=== PATIENT | female | born 1950 | race Caucasian/White ===

== ENCOUNTER 2020-02-22 10:18 | Outpatient (CLI) | payer MEDICARE, SELFPAY ==
--- NOTE | ~2020-02-22 | DEXA_ITS ---
Bone Density Report Name: Brooke Jose Age: 69 Sex: Female Ethnicity: White Date of : 1950 Indication: postmenopausal; screening for osteoporosis; height loss; Referring Provider: Yeni, Jignesh Study: Bone densitometry was performed. Exam Date: February 22, 2020 Accession number: [id number] Bone Density: Region BMD T-score Z-score Classification AP Spine(L1-L4) 1.164 1.1 3.1 Normal World Health Organization criteria for BMD impression classify patients as: Normal (T-score at or above -1.0), Osteopenia (T-score between -1.0 and -2.5), or Osteoporosis (T-score at or below -2.5). Clinical Information Provided by Patient: Is being treated for osteoporosis Has used the following medications: Actonel (i.e. risedronate), Vitamin D, Calcium Patient maximum height was 64 Menopause Age: 50 Drinks caffeinated beverages Onset of menses at age 13 Number of children 2 Impression: The patient has normal bone mass. Discussion: It is important to ask patients whether they are taking their medications and to encourage continued and appropriate compliance with their osteoporosis therapies to reduce fracture risk. It is also important to review their risk factors and encourage appropriate calcium and vitamin D intakes, exercise, fall prevention and other lifestyle measures. Follow-Up: Consider a repeat BMD and Vertebral Fracture Assessment (VFA) exam in 2 years or sooner if medically necessary, to reassess this patient's status. Reported by: Dr. Antony Solano on 02/22/2020 11:04:00 AM. Reviewed, dictated and finalized at location [facility]
== END 2020-02-22 10:19 | disposition home or self-care (01) ==
LOC: CHSIMG 10:20
PROVIDERS: PCP Family Medicine; Visit Provider Family Medicine
DX: Z78.0 Asymptomatic menopausal state (principal)
CPT/HCPCS: 77080

== ENCOUNTER 2022-03-26 09:55 | Outpatient (CLI) | payer MEDICARE, SELFPAY ==
--- NOTE | ~2022-03-26 | DEXA_ITS ---
Bone Density Report Name: HIRAM AYALA Age: 71 Sex: Female Ethnicity: White Date of : 1950 Indication: postmenopausal; screening for osteoporosis; height loss; prior fracture; Referring Provider: Yeni, Jignesh Study: Bone densitometry was performed. Exam Date: March 26, 2022 Accession number: [id number] Bone Density: Region BMD T-score Z-score Classification AP Spine(L2, L3, L4) 1.188 1.0 3.3 Normal World Health Organization criteria for BMD impression classify patients as: Normal (T-score at or above -1.0), Osteopenia (T-score between -1.0 and -2.5), or Osteoporosis (T-score at or below -2.5). Clinical Information Provided by Patient: Have had a previous hip or vertebral fracture Has had a low trauma fracture Is being treated for osteoporosis Has used the following medications: Vitamin D, Calcium Patient maximum height was 64 Menopause Age: 50 No regular weight bearing exercise Does not regularly consume dairy products Drinks caffeinated beverages Onset of menses at age 12 Number of children 2 Impression: The patient has normal bone mass. The patient has risk factors, including: previous fracture. Discussion: It is important to ask patients whether they are taking their medications and to encourage continued and appropriate compliance with their osteoporosis therapies to reduce fracture risk. It is also important to review their risk factors and encourage appropriate calcium and vitamin D intakes, exercise, fall prevention and other lifestyle measures. Follow-Up: Consider a repeat BMD and Vertebral Fracture Assessment (VFA) exam in 2 years or sooner if medically necessary, to reassess this patient's status. Reported by: Dr. Patrick Kwok on 03/26/2022 10:24:00 AM. Reviewed, dictated and finalized at location [facility]
== END 2022-03-26 09:56 | disposition home or self-care (01) ==
LOC: CHSIMG 09:58
PROVIDERS: PCP Family Medicine; Visit Provider Family Medicine
DX: Z78.0 Asymptomatic menopausal state (principal)
CPT/HCPCS: 77080

== ENCOUNTER 2024-05-07 11:31 | Outpatient (CLI) | payer MEDICARE, SELFPAY ==
--- NOTE | ~2024-05-07 | DEXA_ITS ---
Bone Density Report Name: HIRAM AYALA Age: 73 Sex: Female Ethnicity: White Date of : 1950 Indication: postmenopausal; screening for osteoporosis; height loss; prior fracture; Referring Provider: Yeni, Jignesh Study: Bone densitometry was performed. Exam Date: May 07, 2024 Accession number: [id number] Bone Density: Region BMD T-score Z-score Classification AP Spine(L2, L3, L4) 1.164 0.8 3.2 Normal World Health Organization criteria for BMD impression classify patients as: Normal (T-score at or above -1.0), Osteopenia (T-score between -1.0 and -2.5), or Osteoporosis (T-score at or below -2.5). Previous Exams: Region Exam Age BMD T-score BMD Change BMD Change Date g/cm2 vs Baseline vs Previous AP Spine (L2-L4) 05/07/2024 73 1.164 0.8 -0.024 (-2.0%) -0.024 (-2.0%) 03/26/2022 71 1.188 1.0 *Denotes significance at 95% confidence level, LSC for AP Spine = 0.022 g/cm2 # Denotes dissimilar scan types or analysis methods Clinical Information Provided by Patient: Has had a low trauma fracture Has used the following medications: Vitamin D, Calcium Patient maximum height was 64 Menopause Age: 50 Drinks caffeinated beverages Onset of menses at age 13 Number of children 2 Impression: The patient has normal bone mass. The patient has risk factors, including: previous fracture. No significant bone loss was observed. Discussion: LOW RISK OF FRACTURE; BONE DENSITY IS WELL ABOVE THE MINIMUM DESIRABLE LEVEL AND ABOVE AVERAGE FOR AGE AND SEX AT ALL SKELETAL SITES TESTED. This person's bone density is above expected limits for age and sex. This is rarely clinically significant, but should be pursued if there are significant musculoskeletal complaints. The patient should follow a healthful lifestyle (good nutrition with adequate calcium and vitamin D, and appropriate weight-bearing exercise). Follow-Up: Consider repeating this study in 5 years or sooner if there is some new clinical indication. Reported by: CHRISTOPHER on 05/07/2024 11:56:00 AM. Reviewed, dictated and finalized at location A.
--- OUTSIDE RECORDS SUMMARY | 2024-05-07 12:32 | XMS_ITS | Continuity of Care Document ---
Author Organization [facility] Address [address] [facility] [place] [address] Phone Care Team Providers Care Ore Puncher Name Role Phone Bran Worthington MD Unavailable Unavailable Allergies, Adverse Reactions, Alerts Substance Reaction Status Criticality penicillin G Active No Information Medications Medication Instructions Dosage Effective Dates (start - stop) Status Comments atenolol 100 mg tablet take 1 tablet (100MG) by oral route every day 100 MG - Active Celexa 20 mg tablet take 1 tablet (20MG) by oral route every day 20 MG - Active Lipitor 40 mg tablet take 1 tablet (40MG ) by oral route every day 40 MG - Active alendronate 35 mg tablet take 1 tablet (35MG) by oral route every week in the morning, at least 30 min before first food, beverage, or medication of day - Active Procedures Procedure Date OFFICE/OUTPATIENT VISIT, EST OFFICE/OUTPATIENT VISIT, EST OFFICE/OUTPATIENT VISIT, EST PREV VISIT, EST, AGE 40-64 OFFICE/OUTPATIENT VISIT, EST OFFICE/OUTPATIENT VISIT, EST PREV VISIT, EST, AGE 40-64 Advance Directives Directive Yes / No Effective Date File Name No Information Encounters Encounter Description Practice Location Reason(s) For Visit Diagnoses Date Provider Providers Copied on Encounter OFFICE/OUTPA TIENT VISIT, EST [facility], [address] [place] [id number], [place] tel:[phone] [facility] anemia (chief complaint) Dietary surveillance and counselingAnemiaS/ P hip joint replacementUnspeci fied essential hypertension [address], [place], [place], [address] , [place]. tel:[phone] Referring Provider: [address], [place], [place], [address]. tel:[phone] OFFICE/OUTPA TIENT VISIT, EST [facility], [address], [place], [place], [address], [place] tel:[phone] [facility] Osteopenia (chief complaint)H LP (chief complaint)d epression (chief complaint)H TN (chief complaint) Dietary surveillance and counselingDisorder of bone and cartilage, unspecifiedOther and unspecified hyperlipidemiaDepr essionHypertension , Unspecified [address], [place], [place], [address] , [place]. tel:[phone] Referring Provider: [address], [place], [place], [id number]. tel:[phone] OFFICE/OUTPA TIENT VISIT, EST [facility], [address] [place], [address], [place] tel:[phone] [facility] osteopenia (chief complaint) Dietary surveillance and counselingDisorder of bone and cartilage, unspecified [address], [place], [place], [address] , [place]. tel:[phone] Referring Provider: Chi [address], [place], [place], [address]. tel:[phone] PREV VISIT, EST, AGE 40-64 [facility], [address], [place], [place], [address], [place] tel:[phone] [facility] HTN (chief complaint)H LP (chief complaint)D epression (chief complaint)f amily history of CAD (chief complaint)b ack pain (chief complaint) Dietary surveillance and counselingOther and unspecified hyperlipidemiaDepr essionLumbagoRouti ne Medical ExamRoutine Medical Exam [address], [place], [place], [address] , [place]. [phone] Referring Provider: Chi [address], [place], [place], [id number]. tel:[phone] OFFICE/OUTPA TIENT VISIT, EST [facility], [address], [place], [place], [address], [place] tel:[phone] [facility] Medicine HLP (chief complaint)H TN (chief complaint)d epression (chief complaint)b ack pain (chief complaint) Dietary surveillance and counselingOther and unspecified hyperlipidemiaHype rtension, UnspecifiedLumbago Depression [address], [place], [place], [address] , [place]. [phone] Referring Provider: [address], [place], [place], [address]. tel:[phone] PREV VISIT, EST, AGE 40-64 [facility], [address], [place], [place], [address], [place] tel:[phone] [facility] Physical (chief complaint) Dietary surveillance and counselingRoutine Medical ExamRoutine Medical Exam 3 [address], [place], [place], [address] , [place]. [phone] Referring Provider: [address], [place], [place], [address]. tel:[phone] [facility], [address], [place], [place], [address], [place] tel:[phone] [facility] Routine Medical Exam [address], [place], [place], [address] , [place]. [phone] Family History Family Member Type Diagnosis Age At Onset Mother Problem (finding) Coronary artery disease Mother Problem (finding) Cancer Mother Problem (finding) Hypertension Brother Problem (finding) Diabetes mellitus Father Problem (finding) Coronary artery disease Payers Payer name Insurance type Covered green party ID Authoryenya tidemetrio(s) No Information Social History Type Description Quantity Date Captured Comments Alcohol Use Details No Caffeine Use Details Unknown Tobacco Use Status Ex-cigarette smoker 015 Smoking Status Former smoker Smoking Tobacco Use Details Cigarette: No Details Available Cigarette: No Details Available Sex Female Vital Signs Date / Time: Height Weight BMI Pulse Rate Blood Pressure Temperature Respiratory Rate Body Surface Area Head Circumference BMI percentile Pulse Ox Inhaled Ox 4:40 PM 162.56 cm 196.00 lbs 33.6 4 kg/m eter (2) 80 /min 139/83 mm[Hg] 98.7 F 16 /min Chief Complaint And Reason For Visit From encounter dated '09/06/2014 15:00'. anemia (chief complaint). Description: Additional information: Pt has some anmiea since the hip replacement surgery. Pt denies any blood loss. Plan Of Treatment Date Type Action Status Goal Special diet education compl eted Goal Tobacco cessation counseling completed Goal Tobacco cessation counseling completed Referral Ordered: Referral: Genrl Surg. ordered Referral Ordered: Referral: Ortho Surg. ordered Referral Ordered: CARDIOVASCULAR STRESS TEST ordered Referral Ordered: DXA BONE DENSITY, AXIAL ordered Referral Ordered: Physical Therapy (related to Lumbago) ordered Referral Referred To: Physical Therapy Ordered: Referral: Physical Therapy. ordered Referral Ordered: LUMBAR XRAY AP AND LAT ONLY ordered Referral Ordered: COLONOSCOPY AND BIOPSY ordered History Of Present Illness Encounter Date Complaint History Of Prese nt Illness anemia Additional infor mation: Pt has some anmiea since the hip replacement surgery. Pt denies any blood loss. Instructions Date Instruction Additional Infor mation Prescribed activity/ exercise education Related to Dietary surveillance and counseling Special diet education Related t o Dietary surveillance and counseling Physical activity counseling Rel ated to Dietary surveillance counseling Decrease caloric intake Related to Dietary surveillance counseling Dietary counseling Related to Di etary surveillance counseling Decrease caloric intake Related to Dietary surveillance counseling Dietary counseling Related to Di etary surveillance counseling Decrease caloric intake Related to Dietary surveillance counseling Dietary counseling Related to Di etary surveillance counseling Decrease caloric intake Related to Dietary surveillance counseling Dietary counseling Related to Di etary surveillance counseling Decrease caloric intake Related to Dietary surveillance counseling Assessments Type Assessment Date assessment Dietary surveillance and clinical counselor ing assessment Anemia assessment S/P hip joint replacement assessment Unspecified essential hypertensi on Mental Status Date Cognitive Assessment Orientation - [place] ed to time, place, person, situation.
--- OUTSIDE RECORDS SUMMARY | 2024-05-07 12:32 | XMS_ITS | Clinical Summary ---
Author Organization [facility] Address [address] [place] [address]. [place], [place] [address] [place] [address] Care Team Providers Care Client Technologies Specialist Name Role Phone Jignesh Arita MD Primary Care Provider [phone] Allergies Active Allergy Reactions Criticality Noted Date Comments Penicillins Hives 10/07/2019 Medications atorvastatin 40 MG tablet Take 1 tablet (40 mg total) by mouth daily. 09/30/2019 Active hydroCHLOROthia zide 12.5 MG tablet Take 1 tablet (12.5 mg total) by mouth every morning. 08/22/2019 Active metoprolol succinate ER 100 MG 24 hr tablet Take 1 tablet (100 mg total) by mouth daily. 09/06/2019 Active biotin 300 MCG Tab Take 1 tablet (300 mcg total) by mouth daily. Active calcium carb-cholecalci ferol 600-400 MG-UNIT Tab tablet 2 tablets daily. Active Naproxen Sodium 220 MG Cap Take 2 tablets by mouth daily. 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 [address] Srinivasan Diaz MD COLONOSCOPY 02/25/2024 8:43 AM CHIEF OPHTHALMIC TECHNICIAN Anesthesia [facility] [place] [address] [place] [address] Jana Ramos CRNA 02/25/2024 7:22 AM CHIEF OPHTHALMIC TECHNICIAN - 02/25/2024 9:58 AM CHIEF OPHTHALMIC TECHNICIAN Hospital En[facility] [address] [place] [address] Srinivasan Diaz MD Discharge Disposition: Home or Self Care (Routine Discharge) 02/25/2024 Travel 02/13/2024 Travel from Last 3 Months Immunizations Name Administration Dates Next Due Tdap (Boostrix) 09/24/2022 Family History Medical History Relation Comments No Known Problems Brother 1 Diabetes Brother 2 Heart Father No Known Problems Maternal Grandfather No Known Problems Maternal Grandmother Heart Mother Diabetes Paternal Grandfather No Known Problems Paternal Grandmother Diabetes Sister Relation Status Comments Brother 1 Alive Brother 2 Alive Father Maternal Grandfather Maternal Grandmother Mother Paternal Grandfather Paternal Grandmother Sister Alive Social History Tobacco Use Types Packs/Day Years Used Date Smoking Tobacco: Former Cigarettes 0.3 2 1 978 - 1980 Smokeless Tobacco: Never Tobacco Cessation:Counseling Given: Not Answered Alcohol Use Standard Drinks/Week Comments Yes 0 (1 standard drink = 0.6 oz pur e alcohol) occasionally Comments No Sex and Gender Information Value Date Recorded Sex Assigned at Not on file Legal Sex Female 5:49 PM CHIEF OPHTHALMIC TECHNICIAN Gender Identity Not on file Sexual Orientation Not on file Last Filed Vital Signs Vital Sign Reading Time Taken Comments Blood Pressure 110/55 02/25/2024 9:40 AM CHIEF OPHTHALMIC TECHNICIAN Pulse 86 02/25/2024 9:10 AM CHIEF OPHTHALMIC TECHNICIAN Temperature 36.4 ??C (97.6 ??F) 02/25/2024 9:25 AM CS T Respiratory Rate 16 02/25/2024 9:40 AM CHIEF OPHTHALMIC TECHNICIAN Oxygen Saturation 96% 02/25/2024 9:40 AM CHIEF OPHTHALMIC TECHNICIAN Inhaled Oxygen Concentration - - Weight 75.8 kg (167 lb) 02/13/2024 11:04 AM CHIEF OPHTHALMIC TECHNICIAN Height 162.6 cm (5' 4 ) 02/13/2024 11:04 AM CHIEF OPHTHALMIC TECHNICIAN Body Mass Index 28.67 02/13/2024 11:04 AM CHIEF OPHTHALMIC TECHNICIAN Plan of Treatment Health Maintenance Due Date Last Done Comments Hepatitis C 1968 Annual Medicare Wellness Visit 10/18/2015 Dexa Scan (General) 10/18/2015 Pneumococcal Vaccine: 65+ Years (2 of 2 - PPSV23 or PCV20) 01/09/2017 01/10/2016 Zoster Vaccines (3 of 3) 07/06/2019 020, 05/05/2019, 01/06/2013, Additional history exists COVID-19 Vaccine (3 - season) 2023 06/03/2020, 05/13/2020 Influenza Adult (#1) 2024 RSV Immunization or 60+ Years (1 - 1-dose 75+ series) 2025 Mammogram Screening 10/30/2025 10/31/2023, 10/29/2022, 10/27/2021, Additional history exists DTaP, Tdap and Td Vaccines (2 - Td or Tdap) 09/24/2032 09/24/2022 Colorectal Cancer Screening Colonoscopy (10 Years) 02/24/2034 02/25/2024, 02/25/2024 Meningococcal B Vaccine Aged Out No l onger eligible based on patient's age to complete this topic Meningococcal Vaccine Aged Out No ambar nasrin eligible based on patient's age to complete this topic RSV Immunizations Under 20 Months Aged Out No longer eligible based on patient's age to complete this topic Medical Devices Implanted Type Area Physician Support Coordinator Device Identifier Shelf Expiration Date Model / Serial / Lot Cup Humeral Standard Delta Xtend Depuy Dia38/+6 - [id number] Implanted:Qty : 1 on 07/25/2020 by Fabián Watkins MD at [facility] Humeral Left: Shoulder DEPUY [id number] 03/07/2025 [id number] / / [id number] Cup Humeral Standard Delta Xtend Depuy Dia38/+6 - [id number] Implanted:Qty : 1 on 01/04/2021 by Fabián Watkins MD at [facility] Humeral Right: Shoulder DEPUY [id number] / / [id number] Screw Locking Depuy Delta Xtend Lg 30mm - [id number] Implanted:Qty : 1 on 01/04/2021 by Fabián Watkins MD at [facility] Screw Right: Shoulder DEPUY [id number] 09/05/2025 [id number] / / [id number] Screw Non Locking Depuy Delta Xtend Lg 18mm - [id number] Implanted:Qty : 1 on 01/04/2021 by Fabián Watkins MD at [facility] Screw Right: Shoulder DEPUY [id number] 07/06/2025 [id number] / / [id number] Screw Locking Depuy Delta Xtend Lg 36mm - [id number] Implanted:Qty : 1 on 01/04/2021 by Fabián Watkins MD at [facility] Screw Right: Shoulder DEPUY [id number] 05/08/2025 [id number] / / [id number] Screw Locking Depuy Delta Xtend Lg 30mm - [id number] Implanted:Qty : 1 on 01/04/2021 by Fabián Watkins MD at [facility] Screw Right: Shoulder DEPUY [id number] 09/05/2025 [id number] / / [id number] Metaglene Depuy Delta Xtend - [id number] Implanted:Qty : 1 on 07/25/2020 by Fabián Watkins MD at [facility] Shoulder Components Left: Shoulder DEPUY [id number] 04/07/2025 [id number] / / [id number] Epiphysis Delta Xtend Depuy Size 1 Right - [id number] Implanted:Qty : 1 on 01/04/2021 by Fabián Watkins MD at [facility] Shoulder Components Right: Shoulder DEPUY [id number] 05/08/2025 [id number] / / [id number] Metaglene Depuy Delta Xtend - [id number] Implanted:Qty : 1 on 01/04/2021 by Fabián Watkins MD at [facility] Shoulder Components Right: Shoulder DEPUY [id number] 10/05/2025 [id number] / / [id number] Depuy [id number] Implanted:Qty : 1 on 07/25/2020 by Fabián Watkins MD at [facility] Left: Shoulder 01/05/2022 [id number] / / [id number] Global [place] Peg Glenoid Premieron Implanted:Qty : 1 on 07/25/2020 by Fabián Watikns MD at [facility] Left: Shoulder [id number] 09/05/2020 [id number] / / [id number] Delta Xtend Locking Metagiene Screw Implanted:Qty : 1 on 07/25/2020 by Fabián Watkins MD at [facility] Left: Shoulder 05/08/2025 [id number] / / [id number] Delta Xtend Locking Metagiene Screw Implanted:Qty : 1 on 07/25/2020 by Fabián Watkins MD at [facility] Left: Shoulder 04/07/2025 [id number] / / [id number] Delta Xtend Non Locking Metagiene Screw Implanted:Qty : 1 on 07/25/2020 by Fabián Watkins MD at [facility] Left: Shoulder 02/05/2025 [id number] / / [id number] Delta Xtend Non Locking Metagiene Screw Implanted:Qty : 1 on 07/25/2020 by Fabián Watkins MD at [facility] Left: Shoulder 04/07/2025 [id number] / / [id number] Delta Xtend Lateralized Gelnosphere Implanted:Qty : 1 on 07/25/2020 by Fabián Watkins MD at [facility] Left: Shoulder 04/07/2025 [id number] / / [id number] Delta Xtend Modular Eccentric Epiphysis Mcclellan Coated Cementless Implanted:Qty : 1 on 07/25/2020 by Fabián Watkins MD at [facility] Left: Shoulder 05/08/2025 [id number] / / [id number] Global Unite Porocoat Standard Stem Implanted:Qty : 1 on 07/25/2020 by Fabián Watkins MD at [facility] Left: Shoulder 1100-01-15 0 / / [id number] Delta Xtend Lateralized Glenosphere +2mm 38mm Implanted:Qty : 1 on 01/04/2021 by Fabián Watkins MD at [facility] Right: Shoulder [id number] 09/05/2025 [id number] / / [id number] Global Untie Porocoat Standard Stem 10 113mm Implanted:Qty : 1 on 01/04/2021 by Fabián Watkins MD at [facility] Right: Shoulder 06/05/2030 [id number] / / [id number] Explanted Type Area Physician Support Coordinator Device Identifier Shelf Expiration Date Model / Serial / Lot Drill Bit Depuy 2.5 - [id number] Explanted:Qty: 1 on 07/25/2020 at [facility] Drill Left: Shoulder DEPUY [id number] / / Drill Bit Depuy 2.5 - [id number] Explanted:Qty: 1 on 01/04/2021 at [facility] Drill Right: Shoulder DEPUY [id number] / / 2.5 Guide Pin Explanted:Qty: 1 on 01/04/2021 at [facility] Right: Shoulder [id number] / / Procedures Procedure Name Priority Date/Time Associated Diagnosis Comments COLONOSCOPY DIAGNOSTIC WITH/WITHOUT SPECIMEN BRUSH/WASH 02/25/2024 8:38 AM CHIEF OPHTHALMIC TECHNICIAN Encounter for screening colonoscopy COLONOSCOPY 02/25/2024 6:55 AM CHIEF OPHTHALMIC TECHNICIAN MG SCREENING W LITA UNRULY DIGI Routine 10/31/2023 11:29 AM CDT Visit for screening mammogram from Last 3 Months or Most Recently Relevant to Health Maintenance Results * Colonoscopy (02/25/2024 6:55 AM CHIEF OPHTHALMIC TECHNICIAN) us Srinivasan Diaz MD GI PROCEDURE ORDERABLES Final Result * MG SCREENING W LITA UNRULY DIGI (10/31/2023 11:29 AM CDT) Anatomical Region Laterality Modality Breast Bilateral Mammography 10/31/2023 1:55 PM CDT Impressions 10/31/2023 1:56 PM CDT IMPRESSION: No suspicious change since the previous exams. Recommendation: 1: Routine Screening ??Bilateral ??in 1 Year Assessment: ACR BI-RADS 2 - BENIGN FINDING(S) Ordered By: JIGNESH ARITA Interpreted By: Julio Cesar Dover MD, 10/31/2023 1:55 PM Narrative 10/31/2023 1:56 PM CDT Examination: Digital screening mammogram with CAD. Clinical history: Asymptomatic patient presents for routine screening. Prior left lumpectomy and radiation therapy for cancer. Comparison: 10/29/2022, 10/27/2021, 10/25/2020, 10/21/2019, 09/17/2014. Technique: Bilateral digital mammograms. The exam was interpreted with the use of a computer-aided detection (CAD) system. ??Additional 3-D tomosynthesis images were acquired. Tissue density: The breast tissue contains scattered fibroglandular densities. Findings: The breast tissue contains scattered fibroglandular densities. ?? Benign-appearing calcification noted. Post therapeutic changes on the left have undergone typical evolution. No suspicious mass, microcalcification or area of architectural distortion can be identified. From a mammographic standpoint, routine followup in one year would seem adequate. us Jignesh Arita MD MAMMO Final Resul t from Last 3 Months or Most Recently Relevant to Health Maintenance Insurance [employer] Advance Directives * Full Code (Latest Code Status on File) Date Activated Date Inactivated Comments 01/04/2021 7:18 PM 01/05/2021 3:00 PM * Full Code Date Activated Date Inactivated Comments 07/25/2020 8:16 PM 07/26/2020 7:09 PM Care Teams Client Technologies Specialist Relationship Specialty Start Date End Date Jignesh Arita MD PCP - General FAMILY PRACTICE 07/11/20
--- OUTSIDE RECORDS SUMMARY | 2024-05-07 12:32 | XMS_ITS | Encounter Summary ---
Author Organization [facility] Address [address] [place] [address]. [place], [place] [id number] [place] [id number] Care Team Providers Care Partner Alliance Manager Name Role Phone Manfred Chavez MD Primary Care Provider Jignesh Jaime MD Primary Care Provider [phone] Encounter Details Date Type Department Care Team (Late st Contact Info) Description 09/13/2018 Abstract [facility]FL CONVERSION [address] [place] [address] , Generic Conversion, Social History Tobacco Use Types Packs/Day Years Used Date Smoking Tobacco: Never Assessed Comments Unknown Sex and Gender Information Value Date Recorded Sex Assigned at Not on file Legal Sex Female 5:49 PM INSTRUMENT SETTER Gender Identity Not on file Sexual Orientation Not on file documented as of this encounter Plan of Treatment Not on file documented as of this encounter Visit Diagnoses Not on filedocumented in this encounter Additional Health Concerns Infection Onset Date Last Indicated Resolved Time COVID-19 Rule Out 07/22/2020 07/22/2020 07/23/2020 2:40 PM CDT COVID-19 Rule Out 01/01/2021 01/01/2021 01/01/2021 7:42 PM CDT documented as of this encounter Care Teams Partner Alliance Manager Relationship Specialty Start Date End Date Manfred Chavez MD [address] [place] [phone] PCP - General FAMILY PRACTICE 10/08/18 07/10/20 Jignesh Jaime MD [address] [place] [phone] PCP - General FAMILY PRACTICE 07/11/20 documented as of this encounter
== END 2024-05-07 11:32 | disposition home or self-care (01) ==
LOC: CHSIMG 11:34
PROVIDERS: PCP Family Medicine; Visit Provider Family Medicine
DX: Z78.0 Asymptomatic menopausal state (principal)
CPT/HCPCS: 77080